=== PATIENT | male | born 1995 | race Caucasian/White ===

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

== ENCOUNTER 2017-01-23 11:59 | Observation (INO) | payer OTHER ==
[~2017-01-23] VITALS: Ht 175.3 cm; Wt 113.5 kg
--- NOTE | ~2017-01-23 | HP ---
Unit #: [id number] #: [id number] Patient: VELIA CRUZ [id number] [facility]. [address] [place], [place] [address] [id number] O MR#: [id number] NAME: VELIA CRUZ ROOM: Age: Sex: M Admission Date: 01/23/2017 : 1995 Attending Physician: Vannessa Wang M.D. Primary Care Physician: Rory Mathis M.D. HISTORY AND PHYSICAL CHIEF COMPLAINT Left foot pain and deformity. 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 He had a posteromedial release at that time. He now has increasing left midfoot pain, which has not responded to bracing. He was initially seen in my office a year and a half ago, and we prescribed orthotics, which he cannot afford. Despite multiple attempts to get him in orthotics, he has been unable to get these. He has continued pain and swelling. He states that he can only walk for 20 minutes before he has to sit down. He has tried ibuprofen, naproxen and Tylenol without relief. Radiographs show hypoplasia of the navicular. CT scan demonstrates a flattened talar dome but no evidence of arthritic change. He has a shortened and plantarflexed first ray. The navicular is wedge shaped and dorsally subluxated. The patient is, therefore, admitted for surgical correction, which would entail medial column fusion utilizing anterior iliac crest bone graft and plantar fascia release. We will use a medial plate, as well as platelet derived growth factor to augment fusion. We will plan on fusing his entire medial column from the talus down to the first metatarsal. PAST MEDICAL HISTORY Past medical history is, otherwise, unremarkable. CURRENT MEDICATIONS None. PAST SURGICAL HISTORY Left clubfoot release. ALLERGIES None. SOCIAL HISTORY The patient is a social drinker. He smokes less than 1 pack per day for the past 5 years. REVIEW OF SYSTEMS Unremarkable. PHYSICAL EXAMINATION VITAL SIGNS: Height 5'10", weight 225 pounds. GENERAL: This is a well-developed, well-nourished male in no acute Unit #: [id number] #: [id number] Patient: VELIA CRUZ distress. HEENT: Pharynx is clear. NECK: The neck is supple without masses. HEART: Heart exam reveals a regular sinus rhythm without murmurs or gallops. LUNGS: The lungs are clear. ABDOMEN: The abdomen is soft and nontender without masses or organomegaly. EXTREMITIES: Evaluation of the left foot shows pes cavus with the heel in mild valgus. Ankle dorsiflexion is 5 degrees. Plantarflexion is 30 degrees. Subtalar motion is normal. First MTP joint motion is normal. Sensation is normal. Pulses are palpated. Motor exam is grossly normal. He has a very short first ray with plantarflexion of the first ray and a very wide forefoot. DIAGNOSTIC STUDIES IMAGING: Standing x-rays demonstrate flattening of the talar dome with a wedge-shaped navicular and dorsal subluxation of the navicular. Meary angle is 24 degrees. Calcaneal pitch is 31 degrees. Medial cuneiform height is 27 mm. The first ray is about 15 mm shorter than the second metatarsal. CT scan again documents no evidence of ankle arthritis; however, there is flattening of the talar dome seen on sagittal views. ADMITTING DIAGNOSES 1. 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 3. Left midfoot degenerative arthritis. PLAN The patient has failed conservative care. He will, therefore, undergo left foot medial column fusion using anterior iliac crest bone graft and structural graft, as well as plantar fascia release. A medial fusion plate will be utilized. This procedure was described, along with the risks of bleeding, infection, nerve damage, the need for further surgery in the future, prolonged recovery time, nonunion, malunion, no guarantee of a normal foot, persistent pain, persistent swelling, recovery time of up to a year and, again, need for further surgery in the future, anesthetic complications. He understands the above risks and agrees to proceed. Dictated by Neetu Tinoco TD: 01/22/2017 09:08 JOB #: [id number] Unit #: [id number] #: [id number] Patient: VELIA CRUZ HISTORY AND PHYSICAL Page 1 of 1 X Sha Wang MD X HISTORY AND PHYSICAL
--- NOTE | ~2017-01-23 | OR ---
Unit #: [id number] #: [id number] Patient: VELIA CRUZ [id number] [address] [place], [place] [address] [id number] MR#: [id number] NAME: VELIA CRUZ ROOM: 451 Date of Procedure: 01/23/2017 Admission Date: 01/23/2017 Surgeon: Vannessa Wang M.D. : 1995 Attending Physician: Vannessa Wang M.D. Primary Care Physician: Rory Mathis M.D. OPERATIVE REPORT PREOPERATIVE DIAGNOSES 1. Residual left talipes equinovarus. 2. Left medial midfoot degenerative arthritis. 3. Left navicular hypoplasia. POSTOPERATIVE DIAGNOSES 1. Residual left talipes equinovarus. 2. Left medial midfoot degenerative arthritis. 3. Left navicular hypoplasia. PROCEDURES PERFORMED 1. Excision of left navicular. 2. Left midfoot fusion with fusion of talonavicular joint, naviculocuneiform joint, and first tarsometatarsal joint (62451, [id number]). 3. Left anterior iliac crest structural bone graft (61029). 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 ANESTHESIA Popliteal saphenous block and general. INDICATIONS FOR SURGERY The patient is a 21-year-old male who has undergone previous clubfoot surgery as a child. He now has a residual short first ray with hypoplasia of the navicular and midfoot pain, secondary to arthritis of the mid foot. The patient is therefore to undergo excision of his hypoplastic navicular with fusion of the talonavicular joint using structural iliac crest bone graft. The patient also has significant equinus occurring at the first tarsometatarsal joint. He will undergo correction of this equinus by fusion of this joint as well. DESCRIPTION OF PROCEDURE The patient underwent popliteal saphenous block. He was taken to the operating room and placed in supine position, and general anesthetic was induced. The left foot was identified as the correct operative extremity during the time-out procedure. The IV antibiotic protocol was followed. The left leg and left anterior iliac crest were then prepped and draped in the usual sterile fashion. An 8-cm incision was made over the anterior iliac crest. The subcutaneous tissue was divided. The extensor oblique muscle was sharply reflected off Unit #: [id number] #: [id number] Patient: VELIA CRUZ the iliac crest. A 3.5-cm section of tricortical iliac crest was then harvested with the microsagittal saw and power osteotome. Additional cancellous bone graft was taken. The wound was irrigated and then packed with thrombin-soaked Gelfoam. The oblique muscle fascia was then closed meticulously with 0 Vicryl [id number] sutures. Subcutaneous tissue was closed with 2-0 and 3-0 Vicryl, and skin was closed with skin juani. The left foot was then exsanguinated with an Esmarch bandage, and the thigh tourniquet inflated to 300 mmHg. A medial longitudinal incision was made through the old posterior medial release scar and extended down the mid foot to the mid shaft of the first metatarsal again using the old scar. The subcutaneous tissue was divided. Dissection proceeded dorsally until the first tarsometatarsal joint, naviculocuneiform joint, and talonavicular joints were exposed. The hypoplastic navicular was then removed in a piecemeal fashion. The microsagittal saw, curved curettes, and rongeurs were utilized to remove the articular cartilage from both sides of the talocalcaneal form joint and first tarsometatarsal joint. The underlying subchondral bone was feathered with the power osteotome. 3 mL of Caixin Media augment platelet derived growth factor was then placed in to the talonavicular joint, a naviculocuneiform joint as well as the first tarsometatarsal joint. The iliac crest segment was then placed into the distracted talocuneiform joint and impacted into place. Excellent fit and fill was obtained. Additional autogenous cancellous graft was then packed into the articulation dorsally and plantarly. A Caixin Media medial column fusion plate was then applied and fixated with multiple 3.5 mm diameter cortical screws. This with screws being placed in the talar head and neck, iliac crest graft, cuneiforms, and first metatarsal base. Excellent fixation was achieved, and deformity was corrected nicely. The shortened first ray was improved dramatically. The tourniquet was released with a total tourniquet time of 90 minutes. Deep tissues were closed with 2-0 and 3-0 Vicryl. Subcutaneous tissue was closed with 3-0 Vicryl, and the skin was closed with interrupted 3-0 nylon horizontal mattress sutures. Xeroform gauze, dressing, sponges, Webril, and a posterior fiberglass splint were applied. The patient was then transported to the recovery room in stable condition. ESTIMATED BLOOD LOSS Minimal. COMPLICATIONS None. SPECIMENS None. TOURNIQUET TIME 90 minutes. Dictated byNeetu Dinh/tamara TD: 01/24/2017 01:56 JOB #: [id number] Unit #: [id number] #: [id number] Patient: VELIA CRUZ OPERATIVE REPORT Page 1 of 1 X Sha Wang MD X PROCEDURE OPERATIVE NOTE
[~2017-01-23 11:59] MED LIST changes: -NAPROSYN-EC500 M1 PO; -PERCOCET5/325 PO; -XARELTO10 MG PO
[2017-01-24] MEDS ORDERED: NAPROSYN-EC500 M1 PO (11:50)
[2017-01-24] MEDS ORDERED: XARELTO10 MG PO (11:52)
[2017-01-24] MEDS ORDERED: PERCOCET5/325 PO (11:53)
== END 2017-01-24 13:09 | disposition home or self-care (01) ==
LOC: CSUR 11:59 → CPACUOF 15:18 → CSUR 15:18 → CPACUOF 16:30 → C4B 17:34 → CPACUOF 17:34 → C4B 01-24 13:09 → CSUR 03-13 09:30
DX: Q66.0 Congenital talipes equinovarus (principal); Q66.82 Congenital vertical talus deformity, left foot; M19.072 Primary osteoarthritis, left ankle and foot; F17.210 Nicotine dependence, cigarettes, uncomplicated; Z91.011 Allergy to milk products
CPT/HCPCS: 94010; 94760; 96374; 96375; 96376; 97116; 97161; C1713; C1769; G0378; G8978-GP; G8979-GP; G8980-GP; J0690; J1170; J2250; J2270; J2405; J2550; J2795; J3010